=== PATIENT | female | born 1935 | race Caucasian/White ===

== ENCOUNTER → 2019-01-16 | Day surgery (SDC) | payer MEDICARE, OTHER ==
[~2019-01-16] VITALS: Ht 154.9 cm; Wt 68.0 kg
[~2019-01-16] MED LIST: ANGIOMAX 250 MG VIAL IV ONE; ASPirin 81 mg TAB PO ONE; ATROPINE SULFATE 1 MG/1 ML VIAL ONE; DOPamine 1600MCG/ML D5W 0 ML IV ONE; EPINEPHrine HCL 1 MG/10 ML SYRG ONE; ETOMIDATE (2MG/ML) 20ML VIAL IV ONE; HEPARIN SODIUM (PORCINE) 5000 UNITS/ML 1ML VIAL IV ONE; HEPARIN SODIUM (PORCINE) 5000 UNITS/ML 1ML VIAL ONE; IOHEXOL 350 MG/ML 100ML IJ ONE; InsuLIN REG 1unit/0.01ml Soln (100units/ml) IV ONE; InsuLIN REG 1unit/0.01ml Soln (100units/ml) ONE; LIDOCAINE 2%HCL (LOCAL ANESTH.) INJ 20ML MDV ONE; MIDAZOLAM HCL 1MG/1ML-2 ML VIAL ONE; MORPHINE SULFATE 4 MG/ML SYR/VIAL IV ONE; MORPHINE SULFATE 4 MG/ML SYR/VIAL ONE; NOREPINEPHRINE 8 MG/250ML KIT 250 ML IV ONE; NOREPINEPHRINE 8 MG/250ML KIT 250 ML IV SCH; ROCURONIUM 10MG/ML 10ML VIAL IV ONE; SODIUM CHL 0.9% 50 ML ONE; SODIUM CHLORIDE 0.9% 500 ML IV ONE; SUCCINYLCHOLINE CHLORIDE 20 MG/ML 10ML VIAL IV ONE; fentaNYL CITRATE 100 MCG/2 ML VL ONE
--- NOTE | 2019-01-16 06:00 | NUR ---
RT ASSIST DURING CODE STEMI. PT ON NRB WITH SPO2 80'S -95%. SKIN COOL/CLAMMY TO THE TOUCH. BS ARE CLEAR. RT STANDBY FOR 30 MINS. PT WILL BE TAKEN TO [facility]. WILL CONTINUE TO MONITOR PT.
[2019-01-16 06:17] LABS: Basophils # (auto) 0.1 uL; Eosinophils # (auto) 0.3 uL; Hemoglobin 12.5 g/dL (12.2-16.2); Platelet Count (auto) 139 10^3/uL (140-450); Red Cell Distribution Width 14.9 % (11.8-14.3)
[2019-01-16 06:18] LABS: Basophils % (auto) 0.7 % (0.0-2.0); Hematocrit 40.1 % (36.0-46.0); Lymphocytes % (auto) 51.5 % (10.0-50.0); Mean Corpuscular Hemoglobin 33.5 pg (28.0-32.0); Monocytes # (auto) 0.4 uL; Monocytes % (auto) 3.6 % (0.0-12.0); Neutrophils % (auto) 41.2 % (37.0-80.0); Nucleated Red Blood Cells % 0.1 %; Red Blood Cells 3.71 10^6/uL (4.0-5.20); White Blood Cell 9.8 10^3/uL (4.4-10.8)
[2019-01-16 06:36] VITALS: BP 49/26
[2019-01-16 06:38] LABS: Albumin 3.5 g/dL (3.4-5.0); Magnesium 2.5 mg/dL (1.6-2.6); Potassium 3.4 mmol/L (3.5-5.1)
[2019-01-16 06:42] LABS: BUN/Creatinine Ratio 15.2; Bilirubin, Total 0.3 mg/dL (0.2-1.0); Total Protein 6.8 g/dL (6.4-8.2)
--- NOTE | 2019-01-16 06:50 | NUR ---
RT NOTE: AT 0650 PT WAS INTUBATED BY DR SANCHES ON FIRST ATTEMPT. POSITIVE COLOR CHANGE, BILATERAL BREATH SOUNDS, NEGATIVE FOR BOWEL SOUNDS. 8.0 ETT WAS SECURED WITH ANCHORFAST READ AT 22 CM LL. PT WAS PLACED ON VENTILATOR ONCE ROSC WAS ACHIEVED. PT WAS PLACED ON VENTILATOR V15 AT 0710 SETTINGS OF RR 12, VT 500, +5, 100% FIO2. WAS UNABLE TO DO FIRST VENTILATOR CHECK DUE TO PT BEING SHOCKED AND CPR STARTED AGAIN AT 0712.
== END | disposition home or self-care (01) ==
LOC: EDBD 05:48 → EDUNIT# 05:48 → ER 05:54 → CATH 06:04
PROVIDERS: ATTEND Internal Medicine
DX: I25.82 Chronic total occlusion of coronary artery (principal); I25.10 Atherosclerotic heart disease of native coronary artery without angina pectoris; I10 Essential (primary) hypertension; K21.9 Gastro-esophageal reflux disease without esophagitis; E11.9 Type 2 diabetes mellitus without complications
CPT/HCPCS: 36415; 80053; 83735; 84484; 85025; 92950; 93454; C1769; C1894; J0171; J0583; J1644; J1815; J2250; J2270; J3010; Q9967; 99152; J0330; J0461